=== PATIENT | female | born 1985 | race Two or more races ===

== ENCOUNTER → 2016-11-03 | Outpatient (CLI) | payer OTHER | LOC: FIMAGING 16:47 | PROVIDERS: ATTEND Internal Medicine Rheumatology | DX: R07.9 Chest pain, unspecified (principal) ==

== ENCOUNTER 2018-02-07 20:42 | Emergency (ER) | payer OTHER ==
[2018-02-07 20:49] VITALS: BP 117/67
[2018-02-07] MEDS ORDERED: TDAP ADULT 0.5 ML INJ (BOOSTRIX) IM ONE (21:22)
[2018-02-07] MEDS ORDERED: CEPHALEXIN 500 MG CAP PO ONE (21:22)
--- NOTE | 2018-02-07 21:23 | EDPHY ---
H & P Stated Complaint: R wrist lac x1 week, poss infection Time Seen by Provider: 02/07/18 21:09 HPI/ROS: CHIEF COMPLAINT: Right wrist laceration HISTORY OF PRESENT ILLNESS: 32-year-old female presents with right wrist laceration. She accidentally cut her right wrist 1 week ago with a curtain jeremy. She has been using glue to try to hold the edges together. However now the area is red and painful. No drainage or fever. ROS: No numbness, weakness, excessive bleeding, syncopal episode, other injury. - Personal History LMP (Females 10-55): Now Current Tetanus/Diphtheria Vaccine: Yes Tetanus Vaccine Date: 2008 - Medical/Surgical History Hx Asthma: No Hx Chronic Respiratory Disease: No Hx Diabetes: No Hx Cardiac Disease: No Hx Renal Disease: No Hx Cirrhosis: No Hx Alcoholism: No Hx HIV/AIDS: No Hx Splenectomy or Spleen Trauma: No Other PMH: surgical- [facility] 04/27/13 [facility] - Physical Exam Exam: Alert and oriented, pleasant Extremities: Right wrist -2 cm laceration on the ulnar aspect of the right wrist, with surrounding erythema and tenderness; no pain with wrist range of motion Neuro: Motor and sensory intact Vascular: Capillary refill brisk distally. Constitutional: Initial Vital Signs Heart Rate 83 02/07/18 20:46 Respiratory Rate 16 02/07/18 20:46 Blood Pressure 117/67 02/07/18 20:46 O2 Sat (%) 96 02/07/18 20:46 O2 Delivery Mode Room Air Allergies/Adverse Reactions: No Known Allergies Allergy (Verified 02/07/18 20:47) Home Medications: Medication Instructions Recorded Prednisone 07/28/13 Cephalexin [Keflex (*)] 500 mg PO TID #30 cap 02/07/18 Methotrexate 02/07/18 Medical Decision Making ED Course/Re-evaluation: 1% lidocaine locally given by me. The wound was scrubbed per protocol. Keflex 500 mg orally given. - Data Points Medications Given: Discontinued Medications Cephalexin HCl (Keflex) 500 mg PO EDNOW ONE PRN Reason: Protocol Stop: 02/07/18 21:23 Last Admin: 02/07/18 21:31 Dose: 500 mg Diphtheria/Tetanus/Acell Pertussis (Boostrix) 0.5 ml IM .ONCE ONE Stop: 02/07/18 21:23 Last Admin: 02/07/18 21:31 Dose: 0.5 ml Departure - Departure Disposition: Home, Routine, Self-Care Clinical Impression: Cellulitis Qualifiers: Site of cellulitis: extremity Site of cellulitis of extremity: upper extremity Laterality: right Qualified Code(s): L03.113 - Cellulitis of right upper limb Condition: Good Instructions: Cellulitis (ED) Referrals: Bright Sanchez MD [Medical Doctor] - 2-3 days, if not improved Prescriptions: Cephalexin [Keflex (*)] 500 mg PO TID #30 cap
== END 2018-02-07 21:51 | disposition home or self-care (01) ==
DX: L03.113 Cellulitis of right upper limb (principal); S61.511D Laceration without foreign body of right wrist, subsequent encounter; Z23 Encounter for immunization